=== PATIENT | female | born 1945 | race Caucasian/White ===

== ENCOUNTER 2017-03-18 00:47 | Emergency (ER) | payer MEDICARE, BC ==
--- OUTSIDE RECORDS SUMMARY | 2017-03-18 01:13 | XMS REPORT | Continuity of Care Document ---
:1945 Author Organization [facility] ([facility]) Address [address] [place] [address] Phone [phone] Care Team Providers Name Role Phone Unavailable Primary Care Provider Unavailable Source Comments This disclosure is being made pursuant to the Care Everywhere program, applicable federal and state laws, and may not contain all informaitonavailable regarding this patient.[facility] ([facility]) Active Allergies and Adverse Reactions Not on File Current Medications Not on file Active Problems Not on file Social History Tobacco Use Types Packs/Day Years Used Date Never Assessed Plan of Care Health Maintenance Due Date Last Done Comments Hepatitis B Vaccine (1 of 3 - Primary Series) 1945 Tdap Vaccine 1954 Lipid Disorder Screening 1961 Td Vaccine 1961 Mammogram 1983 Colonoscopy 06/19/1993 Zoster Vaccine 2003 Osteoporosis Screening (DXA Bone Density) 2008 Pneumococcal Vaccine (1 of 2 - PCV13) 2008 Influenza Vaccine: Seasonal (#1) 05/28/2016 Results from Last 3 Months Not on file
[2017-03-18 01:23] VITALS: BP 186/94
--- NOTE | 2017-03-18 04:33 | ERNOTE ---
Medical Problem HPI - Narrative Date of Service: 03/18/17 - General Chief Complaint: Screening, Blood Pressure Time Seen by Provider: 03/18/17 03:51 Source: patient, family Exam Limitations: no limitations - Immun/Allergies/Home Medications Immunizations: IMMUNIZATION HX Immunizations Up to Date Yes History of Influenza Vaccine Yes Hx Pneumococcal Vaccination Yes Allergies/Adverse Reactions: Allergies No Known Allergies Allergy (Unverified 03/18/17 01:09) Home Medications: HOME MEDICATIONS Eprosartan Mesylate 600 mg PO DAILY 03/18/17 [Last Taken Unknown] Ezetimibe [Zetia] 10 mg PO DAILY 03/18/17 [Last Taken Unknown] Hydrochlorothiazide 12.5 mg PO DAILY 03/18/17 [Last Taken Unknown] Metoprolol Succinate [Toprol Xl] 12.5 mg PO DAILY 03/18/17 [Last Taken Unknown] - History of Present History Narrative: PT HAS CONCERNS ABOUT HER BLOOD PRESSURE WHICH HAS BEEN RUNNING HIGH AFTER SHE HAD SOME RECENT MEDICATION ADJUSTMENTS LAST SATURDAY, , WITH DECREASE IN HCTZ TO 12.5 AND ADDITION OF METOPROLOL 12.5 BID. SHE HAS HAD SSOME PRESSURES WITH SYSSTOLIC 180-190 AND DIASTOLIC TO 90. SHE SEEMS VERY WORRIED AND ANXIOUS ABOUT THE NUMBERS. SHE IS ALSO WORRIED BECASUE HER LEGSS FEEL HEAVIER AT NIGHT WHEN SHE TAKES OFF THE SUPPORT HOSE SHE WEARS DURING THE DAY AND SHE THINKS SHE NEEDS TO GO BACK UP ON THE HCTZ TO 25. SHE HAS NO OTHER PHYSICAL COMPLAINTS. SHE SEEMS A VERY ANXIOUS PERSON. Review of Systems - Review of Systems Constitutional: Present: See HPI, other - CONCERNS OF BP NOT BEING IN IDEAL RANGE. EYE: Present: no symptoms reported ENT: Present: no symptoms reported Respiratory: Present: no symptoms reported Cardiology: Present: no symptoms reported Gastrointestinal/Abdominal: Present: no symptoms reported Genitourinary: Present: no symptoms reported Musculoskeletal: Present: no symptoms reported Skin: Present: no symptoms reported Neurological: Present: no symptoms reported Endocrine: Present: no symptoms reported Hematologic/Lymphatic: Present: no symptoms reported Psych: Present: anxiety All Other Systems: All systems neg except as marked - Patient's Past Medical History Patient History - Medical: No pertinent hx Patient History - Cardiac/Respiratory: Hypertension, Hyperlipidemia Patient History - Cancer: No Hx of Cancer Patient History - Surgical Procedures: Cholecystectomy, , Total Hip Replacement Patient History - Other: None - Social History Living Situations: home Abuse History: No History of abuse Psych History: No pertinent hx Smoking Status: Never smoker Alcohol Use: none Drug Use: none - Immunizations Immunizations Up to Date: Yes Hx Pneumococcal Vaccination: Yes History of Influenza Vaccine: Yes Physical Exam - Physical Exam General Appearance: Present: wd/wn, alert, anxious Respiratory: Present: no respiratory distress Cardiovascular/Chest: Present: regular rate, rhythm Neurological Exam: Present: alert, oriented ED Progress - Vital Signs Patient's Vital Signs:: I have reviewed the patient's vital signs. Vital Signs: Vital Signs 03/18/17 01:00 Temperature 37.0 C Pulse Rate 78 Respiratory 18 Rate Blood Pressure 186/94 O2 Sat by Pulse 96 Oximetry WHILE BEING MONITORED HERE SHE GOES UP TO 190 SYSTOLIC AFTER ACTIVITY , WALKING TO BATHROOM OR WHEN SHE IS TALKING ABOUT HER BLOOD PRESSURE CONCERNS. WHEN CALMER SHE DROPS TO 170'S . - EKG EKG: NSR EKG read: Interp. by me - MONITOR STRIPS - Progress/Reassessment Chief Complaint: Screening, Blood Pressure Plan - Plan Plan: I TALKED TO HER ABOUT THE FACT IT COULD TAKE A WHILE FOR THE BP TO EQUILIBRATE AFTER HER CHANGES AND THAT HER DR PROBABLY ANTICIPATED HAVING TO MAKE FURTHER ADJUSTMENTS WHICH IS WHY SHE STARTED HER ON A LOW DOSE OF METOPROLOL . I GOT THE SENSE THAT THIS DID NOT CALM HER FEARS. SHE REPORTED THAT WHILE REPEATEDLY TAKING HER [place] NURSE IT DID GO UP TO 200 SYSTOLIC ON ONE OCCASION. Departure - Departure Clinical Impression: Hypertension Qualifiers: Hypertension type: essential hypertension Qualified Code(s): I10 - Essential ( primary) hypertension Disposition: Home Follow Up Needed Condition: Fair Instructions: Hypertension, [id number], Managing Your High Blood Pressure Additional Instructions: DISCUSS WITH YOUR DOCTOR YOUR BLOOD PRESSURE CONCERNS AND CONCERNS ABOUT FEELING OF YOUR LEGS THAT YOU HAVE BEEN HAVING SINCE THE RECENT MEDICATIONS CHANGES MADE LAST WEEK. THOUGH IT HAS ONLY BEEN A SHORT TIME SINCE SHE MADE THE CHANGES SHE MAY WANT TO ADJUST THEM FURTHER. BE SURE TO TAKE A DAILY WEIGHT ABOUT THE SAME TIME EVERY DAY TOO SEE IF THERE IS SIGNIFICANT CHANGE THAT MIGHT INDICATE INCREASED WATER RETENTION. CONSIDER DOING THREE TIMES A DAY RELAXATION MEDITATION USING A PHONE AP LIKE "[facility]" WHICH COULD HELP YOU TEACH YOURSELF WAYS TO RELAX AND HELP CONTROL STRESS OR ANXIETY THAT CAN WORK AGAINST BLOOD PRESSURE CONTROL IF YOUR DOCTOR HAS RECOMMENDED DIETARY RESTRICTIONS TRY TO KEEP WITH THEM TO HELP WITH YOUR HEALTH.
== END 2017-03-18 04:15 | disposition home or self-care (01) ==
LOC: ER 00:47
DX: E78.5 Hyperlipidemia, unspecified (principal)